=== PATIENT | female | born 1960 | race Caucasian/White ===

== ENCOUNTER → 2020-06-25 14:37 | Outpatient (CLI) | payer BC, SELFPAY ==
--- NOTE | ~2020-06-25 | MM_ITS ---
EXAMINATION: MM screening [facility] BI w mook HISTORY: Screening mammogram TECHNIQUE: Craniocaudal and mediolateral oblique 3-D tomosynthesis images were obtained and synthetic 2-D images were generated. CAD analysis was submitted and interpreted. COMPARISON: No prior mammogram is available for comparison at this institution. BREAST PARENCHYMAL COMPOSITION: FINDINGS: There is approximately 8 x 15 mm asymmetric density in the posterior aspect of the upper ou ter quadrant of the left breast. Otherwise there is no evidence of suspicious mass, calcification, or architectural distortion to sugg est malignancy in either breast. There has been no suspicious interval change. IMPRESSION: 1. Approximately 8 x 15 mm asymmetric density in posterior upper outer left breast; diagnostic left m ammogram and left breast ultrasound examination are recommended. 2. Recommend routine screening mammography in one year. BI-RADS Category 0: Incomplete: Needs additional imaging evaluation. Reviewed, dictated and finalized at location A. IMPRESSION: 1. Approximately 8 x 15 mm asymmetric density in posterior upper outer left cliff ast; diagnostic left mammogram and left breast ultrasound examination are recom mended. 2. Recommend routine screening mammography in one year. BI-RADS Category 0: Incomplete: Needs additional imaging evaluation.
== END ==
PROVIDERS: Visit Provider Obstetrics & Gynecology
DX: Z12.31 Encounter for screening mammogram for malignant neoplasm of breast (principal); R92.8 Other abnormal and inconclusive findings on diagnostic imaging of breast
CPT/HCPCS: 77063; 77067

== ENCOUNTER → 2020-07-17 14:23 | Outpatient (CLI) | payer BC, SELFPAY ==
--- NOTE | ~2020-07-17 | MMUS_ITS ---
EXAMINATION: MM diagnostic mammo unilat LT, US breast LT limited HISTORY: 8 x 15 mm asymmetric density reported in the posterior upper outer left breast on 06/25/2020 bilateral diagnostic digital mammogram examination TECHNIQUE: Additional 3-D tomosynthesis images of the left breast were performed and synthetic 2-D im ages were generated. CAD analysis was submitted and interpreted. High resolution upper outer quadrant left breast ultrasound was performed. COMPARISON: 06/25/2020 bilateral digital screening mammogram FINDINGS: MAMMOGRAPHIC FINDINGS: No suspicious mass or architectural distortion is reproduced on these supplemental views. ULTRASOUND: Matching the opacity noted on the screening mammogram of 06/25/2020 is a parallel circumscribed 3.5 x 18 mm x 21 mm sonolucency consistent with simple cyst. IMPRESSION: 1. Benign cyst at 2:00 6 cm from nipple 2. No mammographic evidence of malignancy. BI-RADS Category 2: Benign finding(s). Regulation: Routine mammographic screening Reviewed, dictated and finalized at location A. IMPRESSION: 1. Benign cyst at 2:00 6 cm from nipple 2. No mammographic evidence of malignancy. BI-RADS Category 2: Benign finding(s). Regulation: Routine mammographic screening
== END ==
PROVIDERS: Visit Provider Obstetrics & Gynecology
DX: N60.02 Solitary cyst of left breast (principal)
CPT/HCPCS: 76642; 77065

== ENCOUNTER → 2021-07-22 09:47 | Outpatient (CLI) | payer BC, SELFPAY ==
--- NOTE | ~2021-07-22 | MM_ITS ---
EXAMINATION: MM screening [facility] BI w mook HISTORY: Screening mammogram TECHNIQUE: Craniocaudal and mediolateral oblique 3-D tomosynthesis images were obtained and synthetic 2-D images were generated. CAD analysis was submitted and interpreted. COMPARISON: 07/17/2020, 06/25/2020, 06/17/2019 BREAST PARENCHYMAL COMPOSITION: The breasts are heterogeneously dense, which may obscure small masses . FINDINGS: There is no evidence of suspicious mass, calcification, or architectural distortion to sugg est malignancy in either breast. There has been no suspicious interval change. IMPRESSION: 1. No mammographic evidence of malignancy. 2. Recommend routine screening mammography in one year. BI-RADS Category 1: Negative Reviewed, dictated and finalized at location A.
== END ==
PROVIDERS: PCP Internal Medicine; Visit Provider Obstetrics & Gynecology
DX: Z12.31 Encounter for screening mammogram for malignant neoplasm of breast (principal)
CPT/HCPCS: 77063; 77067

== ENCOUNTER 2021-11-21 23:04 | Emergency (ER) | payer BC, SELFPAY ==
[2021-11-21 23:11] VITALS: BP 140/81; PULSE 71; RESP 16; TEMP 36.1; O2SAT 96
[2021-11-22] MEDS: LIDO 1%/EPINEPHRINE 1:100,000 50 ML VIAL 10 ML INFILTRATE (00:47)
[2021-11-22 00:49] VITALS: BP 139/85; PULSE 81; RESP 22; TEMP 36.6; O2SAT 100
--- NOTE | 2021-11-22 01:07 | ED.LOWEXIN ---
HPI - Extremity Injury (Lower) General Chief Complaint: Extremity Injury, Lower Stated Complaint: left knee injury Time Seen by Provider: 11/22/21 00:26 History of Present Illness HPI Narrative: Patient is a 61-year-old female who presents ER with left knee pain. She was walking garage when she tripped and fell driving her knee into the ground. She suffered laceration to the knee. No range of motion deficit. Tetanus up-to-date. No numbness or tingling. She did not strike her head or lose consciousness. Related Data Allergies Allergy/AdvReac Type Severity Reaction Status Date / Time Sulfa (Sulfonamide AdvReac Swelling Verified 11/21/21 23:15 Antibiotics) Review of Systems Musculoskeletal: Musculoskeletal: Denies arthralgias, Denies joint swelling and Denies muscle cramps Integumentary/Breasts: Skin/Breast: Denies rash and Denies skin ulcer Comments: knee laceration Neurologic: Denies syncope, Denies focal weakness and Denies numbness PMFSH Past Medical History Medical History (Updated 11/22/21 @ 01:28 by Johnathan Winter MD) Healthy female adult Surgical History Surgical History (Updated 11/22/21 @ 01:09 by Johnathan Winter MD) No history of previous surgery Social History Social History (Updated 11/22/21 @ 01:09 by Johnathan Winter MD) Smoking status: Never smoker Exam Narrative: GENERAL: Well-appearing, well-nourished, and in no acute distress. HEAD: Normocephalic, atraumatic. HEART: Regular rate and rhythm. No murmur heard. Normal peripheral pulses. EXTREMITIES: Normal range of motion. No edema. SKIN: Warm, dry, no rash. 2.5 cm L-shaped laceration to the left knee. Does not subcutaneous tissue. Bleeding controlled. No foreign body. NEURO: No focal deficits. Alert and oriented x3. PSYCH: Normal mood and affect. Course Vital Signs Vital signs: Vital Signs Temperature 97.0 F L 11/21/21 23:11 Pulse Rate 71 11/21/21 23:11 Respiratory Rate 16 11/21/21 23:11 Blood Pressure 140/81 11/21/21 23:11 Pulse Oximetry 96 11/21/21 23:11 Temperature 98 F 11/22/21 00:49 Pulse Rate 81 11/22/21 00:49 Respiratory Rate 22 H 11/22/21 00:49 Blood Pressure 139/85 11/22/21 00:49 Pulse Oximetry 100 11/22/21 00:49 Procedures Laceration Laceration 1: Date: 11/22/21 Time: 01:05 Site: lower extremity Side (If applicable): left Size (cm): 2.5 Description: linear Depth: simple, single layer Local Anesthetic: lidocaine 1% and with epi Amount of anesthesia used (mL): 3 Pre-repair: wound explored and irrigated ====== Skin Level ====== Skin layer closed with: nylon Size (cm): 3-0 Number of sutures: 3 Technique: simple, interrupted (2) and horizontal mattress (1) ====== Subcutaneous Layer ====== ====== Muscle Layer ====== ====== Tendon Layer ====== Discharge Plan Discharge Clinical Impression: Laceration of knee Patient Disposition: Home, Self-Care Condition: Stable Instructions: Laceration (ED) Additional Instructions: Return the ER if you have fever of 100.4 ?F, you have pus draining from your knee, you suffer new injury, you have additional concerns. You may remove the sutures in 14 days. Follow-up/Referrals: Marcos,MD Randy [Primary Care Provider] - 2 Weeks
== END 2021-11-22 02:06 | disposition home or self-care (01) ==
PROVIDERS: Emergency Provider Emergency Medicine; PCP Internal Medicine
DX: S81.012A Laceration without foreign body, left knee, initial encounter (principal); W01.0XXA Fall on same level from slipping, tripping and stumbling without subsequent striking against object, initial encounter
CPT/HCPCS: 12001; 99282

== ENCOUNTER → 2022-10-08 08:16 | Outpatient (CLI) | payer BC, SELFPAY ==
--- NOTE | ~2022-10-08 | MM_ITS ---
EXAMINATION: MM screening [facility]i BI w mook HISTORY: Screening TECHNIQUE: Craniocaudal and mediolateral oblique 3-D tomosynthesis images were obtained and synthetic 2-D images were generated. CAD analysis was submitted and interpreted. COMPARISON: Comparison to multiple prior studies sequentially, with oldest reviewed study dated 06/14. BREAST PARENCHYMAL COMPOSITION: The breasts are extremely dense, which lowers the sensitivity of mamm ography FINDINGS: There is a new focal asymmetry centrally in the left breast on CC view. The right breast is stable without evidence for malignancy. IMPRESSION: 1. New focal left breast asymmetry located centrally on CC view, posterior third. 2. Additional mammographic views and possible breast ultrasound are recommended. BI-RADS Category 0: Incomplete: Needs additional imaging evaluation. Reviewed, dictated and finalized at location A. ISSIONS SPECIALIST IMPRESSION: 1. New focal left breast asymmetry located centrally on CC view, posterior thir d. 2. Additional mammographic views and possible breast ultrasound are recommended . BI-RADS Category 0: Incomplete: Needs additional imaging evaluation.
== END ==
PROVIDERS: PCP Internal Medicine; Visit Provider Advanced Practice Midwife
DX: Z12.31 Encounter for screening mammogram for malignant neoplasm of breast (principal); R92.8 Other abnormal and inconclusive findings on diagnostic imaging of breast
CPT/HCPCS: 77063; 77067

== ENCOUNTER → 2022-11-02 07:54 | Outpatient (CLI) | payer BC, SELFPAY ==
--- NOTE | ~2022-11-02 | MM_ITS ---
EXAMINATION: MM diagnostic nicki LT w mook HISTORY: Possible left breast mass on screening mammogram TECHNIQUE: Additional 3-D tomosynthesis images of the left breast were performed and synthetic 2-D im ages were generated. CAD analysis was submitted and interpreted. COMPARISON: 10/08/2022, 07/22/2021, 07/17/2020, 06/25/2020 FINDINGS: There is a return to baseline fibroglandular appearance with spot compression of the left b reast in the area questioned on screening mammogram. IMPRESSION: 1. No mammographic evidence of malignancy. 2. Recommend routine screening mammography in one year. BI-RADS Category 1: Negative Reviewed, dictated and finalized at location A. 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
== END ==
PROVIDERS: PCP Internal Medicine; Visit Provider Obstetrics & Gynecology Gynecology
DX: R92.8 Other abnormal and inconclusive findings on diagnostic imaging of breast (principal)
CPT/HCPCS: 77061; 77065; G0279

== ENCOUNTER 2023-05-08 09:00 | Outpatient (NON) | payer BC, SELFPAY | END 2023-05-08 09:01 | disposition home or self-care (01) | LOC: ANHLAB 05-10 15:33 | PROVIDERS: PCP Internal Medicine; Visit Provider Nurse Practitioner | DX: C44.90 Unspecified malignant neoplasm of skin, unspecified (principal) | CPT/HCPCS: 88305 ==

== ENCOUNTER 2023-07-11 04:13 | Day surgery (SDC) | payer BC, SELFPAY ==
[2023-07-03 13:22] VITALS: BMI 25.2
[2023-07-11 07:20] VITALS: BP 127/84; PULSE 70; RESP 16; TEMP 36.2; O2SAT 97; BMI 25.2
[2023-07-11] MEDS: LACTATED RINGERS 1,000 ML 150 ML IV CONT (07:29)
--- NOTE | 2023-07-11 08:17 | P.PNAN_ITS ---
Anes - Initial Pre Proc Eval Procedure: Operation Date: 07/11/23 08:45 Proposed Procedures p Screening Colonoscopy - Stuart Guan MD Date/Time: 07/11/23 08:17 Surgeon: Stuart Guan MD Pre Op Diagnosis: neoplasm screening Patient Data Age: 63 Gender: F Height: 1.7 m Weight: 73 kg Last Vital Signs Temp 36.2 C L 07/11/23 07:20 Pulse 70 07/11/23 07:20 Resp 16 07/11/23 07:20 BP 127/84 07/11/23 07:20 Pulse Ox 97 07/11/23 07:20 O2 Del Method Room Air 07/11/23 07:20 Allergies Allergy/AdvReac Type Severity Reaction Status Date / Time Sulfa (Sulfonamide AdvReac Swelling Verified 07/11/23 07:19 Antibiotics) Home Medications Medication Instructions Recorded Confirmed Type bupropion HCl 300 mg 24 hr tablet, 300 mg PO QAM 07/03/23 07/11/23 History extended release diphenhydramine HCl 25 mg capsule 25 mg PO HS PRN Insomnia 07/03/23 07/11/23 History (Benadryl) sertraline 100 mg tablet 100 mg PO DAILY 07/03/23 07/11/23 History Patient hx anesthesia problems: none Family hx anesthesia problems: none Results Review: All pre-operative results and documents have been reviewed as part of the pre- operative evaluation. COUNTS INCLUDE 234 BEDS AT THE [facility] Past Medical History Medical History Healthy female adult Surgical History Surgical History No history of previous surgery Social History Social History Smoking status: Never smoker Alcohol intake: current Drinks per week: 7 Alcohol use details: 1 glass wine/day Living arrangements: with family Spiritual care concerns: No Anes - Eval Final PreProcedure Day of Procedure 07/11/23 08:17 Patient weight: normal Heart: regular rate and rhythm Lungs: clear to auscultation Airway: Mallampati scale class II Neurological: alert and oriented Last oral intake: >/= 8 hours ASA classification: II Emergent: no Anesthetic plan: proceed Anesthesia type and monitoring: general GIVS and standard monitoring Results Review: All pre-operative results and documents have been reviewed as part of the pre- operative evaluation. Informed Consent: The patient's anesthetic plan and its attendant risks and benefits were discussed with the patient/family/POA. Questions were solicited and answers provided to the satisfaction of the patient/family/POA.
--- NOTE | 2023-07-11 08:23 | PM.HPGS ---
History of Present Illness History of Present Illness Consent: Risks, benefits, and alternatives have been discussed and questions answered. Patient agrees to proceed with procedure. Chief complaint: neoplasm screening Narrative: Liz Velásquez is a 63 year old female here for first screening colonoscopy Review of Systems Constitutional: Constitutional: Denies headache(s) and Denies weakness Eyes: Eyes: Denies blurry vision ENT: Reports Normal hearing present, Denies headache(s) and Denies neck pain Cardiovascular: Cardiovascular: Denies chest pain and Denies dyspnea Respiratory: Respiratory: Denies dyspnea Gastrointestinal: Gastrointestinal: Reports no additional gastrointestinal complaints Genitourinary: Genitourinary: Denies dysuria Musculoskeletal: Musculoskeletal: Denies neck pain Integumentary/Breasts: Skin/Breast: Denies dry skin Neurologic: Reports Normal hearing present, Denies headache(s) and Denies weakness Psychiatric: Psychiatric: Denies anxiety Endocrine: Endocrine: Denies change in body appearance Hematologic/Lymphatic: Hematologic/Lymphatic: Denies easy bleeding Allergic/Immunologic: Allergic/Immunologic: Denies urticaria [facility] Past Medical History Medical History (Updated 07/11/23 @ 08:23 by Stuart Guan MD) Colon cancer screening Healthy female adult Surgical History Surgical History No history of previous surgery Social History Social History Smoking status: Never smoker Alcohol intake: current Drinks per week: 7 Alcohol use details: 1 glass wine/day Living arrangements: with family Spiritual care concerns: No Meds Home Medications and Allergies Home Medications Medication Instructions Recorded Confirmed Type bupropion HCl 300 mg 24 hr tablet, 300 mg PO QAM 07/03/23 07/11/23 History extended release diphenhydramine HCl 25 mg capsule 25 mg PO HS PRN Insomnia 07/03/23 07/11/23 History (Benadryl) sertraline 100 mg tablet 100 mg PO DAILY 07/03/23 07/11/23 History Allergies Allergy/AdvReac Type Severity Reaction Status Date / Time Sulfa (Sulfonamide AdvReac Swelling Verified 07/11/23 07:19 Antibiotics) Vital Signs Vital Signs - 24 hr 07/11/23 07:20 Temperature 97.1 F L Pulse Rate 70 Respiratory Rate 16 Blood Pressure 127/84 Pulse Oximetry 97 Oxygen Delivery Room Air Exam Const: General: comfortable and no acute distress HENMT: Face/Nose/Sinus: Normal nares present Eyes: General: appearance normal, both eyes and all related structures Neck: Neck: no JVD Resp: Auscultation: clear to auscultation bilaterally Cardio: Rate: regular rate Rhythm: regular rhythm GI: Inspection: non-distended GI Palp: Yes Soft to palpation Skin: General skin exam: normal color Neuro: General: gait normal Speech: normal speech Extrem: General: normal to inspection Psych: Mental Status: mental status grossly normal Assessment and Plan Assessment and plan (1) Colon cancer screening: Code(s): Z12.11 - Encounter for screening for malignant neoplasm of colon Status: Acute Assessment and Plan: colonoscopy
[2023-07-11 08:46] VITALS: BP 106/69; PULSE 65; RESP 18; O2SAT 96
[2023-07-11 08:56] VITALS: BP 110/77; PULSE 56; RESP 18; O2SAT 99
[2023-07-11 09:06] VITALS: BP 115/79; PULSE 64; RESP 18; O2SAT 97
== END 2023-07-11 09:11 | disposition home or self-care (01) ==
PROVIDERS: PCP Internal Medicine; Visit Provider Internal Medicine Gastroenterology
PROC: 0DJD8ZZ Inspection of Lower Intestinal Tract, Via Natural or Artificial Opening Endoscopic (ICD-10-PCS; CPT 45378; principal; 2023-07-11 08:45)
DX: Z12.11 Encounter for screening for malignant neoplasm of colon (principal); D12.0 Benign neoplasm of cecum; K64.8 Other hemorrhoids
CPT/HCPCS: 45385; 88305; J2704; J7120

== ENCOUNTER → 2023-10-10 13:08 | Outpatient (CLI) | payer BC, SELFPAY ==
--- NOTE | ~2023-10-10 | MM_ITS ---
EXAMINATION: MM screening [facility] BI w mook HISTORY: Screening mammogram TECHNIQUE: Craniocaudal and mediolateral oblique 3-D tomosynthesis images were obtained and synthetic 2-D images were generated. CAD analysis was submitted and interpreted. COMPARISON: 11/02/2022, 10/08/2022, 07/22/2021, 07/17/2021, 06/25/2020 BREAST PARENCHYMAL COMPOSITION: The breasts are heterogeneously dense, which may obscure small masses . FINDINGS: No suspicious mass, calcification, or architectural distortion are identified in either cliff ast to suggest malignancy. There has been no suspicious interval change. IMPRESSION: 1. No mammographic evidence of malignancy. 2. Recommend routine screening mammography in one year. BI-RADS Category 1: Negative Reviewed, dictated and finalized at location A. 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
== END ==
PROVIDERS: PCP Internal Medicine; Visit Provider Advanced Practice Midwife
DX: Z12.31 Encounter for screening mammogram for malignant neoplasm of breast (principal)
CPT/HCPCS: 77063; 77067

== ENCOUNTER 2024-12-25 14:02 | Outpatient (CLI) | payer BC, SELFPAY ==
--- NOTE | ~2024-12-25 | MM_ITS ---
EXAMINATION: MM screening [facility] BI w mook HISTORY: Screening TECHNIQUE: Craniocaudal and mediolateral oblique 3-D tomosynthesis images were obtained and synthetic 2-D images were generated. CAD analysis was submitted and interpreted. COMPARISON: Comparison to multiple prior studies sequentially, with oldest reviewed study dated 06/25. BREAST PARENCHYMAL COMPOSITION: Dense: The breasts are heterogeneously dense, which may obscure small masses FINDINGS: There is no evidence of suspicious mass, calcification, or architectural distortion to sugg est malignancy in either breast. There has been no suspicious interval change. IMPRESSION: 1. No mammographic evidence of malignancy. 2. Recommend routine screening mammography in one year. BI-RADS Category 1: Negative Reviewed, dictated and finalized at location A. S TRAINEE
== END 2024-12-25 14:03 | disposition home or self-care (01) ==
PROVIDERS: PCP Internal Medicine; Visit Provider Obstetrics & Gynecology Gynecology
DX: Z12.31 Encounter for screening mammogram for malignant neoplasm of breast (principal)
CPT/HCPCS: 77063; 77067

== ENCOUNTER 2025-08-02 21:11 | Emergency (ER) | payer BC, SELFPAY ==
--- NOTE | ~2025-08-02 | CT_ITS ---
EXAMINATION: CT facial bones wo con COMPARISON: None HISTORY: trauma TECHNIQUE: Axial images were obtained without IV contrast. Sagittal, coronal reconstruction images were obtained from the axial views. CT scan performed using dose optimization techniques including the following automated exposure control; adjustment of mA and/or kV; use of iterative reconstruction technique. Automatic exposure control was used to reduce radiation dose. Permanent radiation dose record is archived to PACS. FINDINGS: Nasal bones are intact. Zygomatic arches are intact. Temporomandibular joints are intact. There is a comminuted displaced fracture of the right posterior inferior orbit, no entrapment. Posttraumatic changes noted involving the maxillary sinuses on the right side. Underlying sinusitis and probable polyp formation. There is a nondisplaced fracture of the right lateral posterior maxillary sinus wall. Nondisplaced fracture of the posterior right lateral orbital rim. There is no retrobulbar hemorrhage. Right preseptal soft tissue swelling. The visualized brain parenchyma appears unremarkable. IMPRESSION: Fractures detailed above Reviewed, dictated and finalized at location A. IMPRESSION: Fractures detailed above
[2025-08-02 21:19] VITALS: BP 142/87; PULSE 63; RESP 18; TEMP 36.7; O2SAT 99
--- OUTSIDE RECORDS SUMMARY | 2025-08-03 00:54 | XMS_ITS | Clinical Summary ---
Author Organization [facility] Address [address] [place] [address] Care Team Providers Care Application Analyst Name Role Phone Randy Rodríguez MD Primary Care Provider [phone] Randy Rodríguez MD Unavailable [phone] Source Comments [facility],non-owned Affiliates and Associated Physician Practices is amultiple site organization consisting of ambulatory clinics and hospital sitesin [place], [place], [place] and [place]. This disclosure is being madepursuant to the Care Everywhere program and may not contain all information available regarding this patient. Last updated 18.[facility] [employer] Allergies Active Allergy Reactions Criticality Noted Date Comments Sulfa Drugs 07/28/2017 Medications * Be aware that medications may not be up to date on this document. Alwaysverify current medications with the patient. buPROPion XL 24hr (WELLBUTRIN-XL) 300 MG tablet Take 300 mg by mouth every morning Active sertraline (ZOLOFT) 100 MG tablet Take 100 mg by mouth once daily Active estradiol (YUVAFEM) 10 MCG vaginal tablet Insert 10 mcg into the vagina Active Immunizations Immunization Administration Dates Next Due INFLUENZA VACCINE, QUADR. (F LUZONE; FLULAVAL; FLUARIX; AFLURIA QUADRIVALENT; 6MO+), 0.5 ML (IIV4) 09/07/2020,09/18/2019,08/25/2017 Social History Tobacco Use Types Packs/Day Years Used Date Smoking Tobacco: Never Smokeless Tobacco: Never Comments Unknown Sex and Gender Information Value Date Recorded Sex Assigned at Not on file Legal Sex Female 8:16 AM CDT Gender Identity Not on file Sexual Orientation Not on file Last Filed Vital Signs Vital Sign Reading Time Taken Comments Blood Pressure 122/80 07/28/2017 12:25 PM CDT Pulse 69 07/28/2017 12:25 PM CDT Temperature 36.8 C (98.2 F) 07/28/2017 12:25 PM CDT Respiratory Rate 16 07/28/2017 12:25 PM CDT Oxygen Saturation 98% 07/28/2017 12:25 PM CDT Inhaled Oxygen Concentration - - Weight 65.8 kg (145 lb) 07/28/2017 12:25 PM CDT Height 170.2 cm (5' 7) 07/28/2017 12:25 PM CDT Body Mass Index 22.71 07/28/2017 12:25 PM CDT Plan of Treatment Health Maintenance Due Date Last Done Comments COLOGUARD (AGES 45-75) - COL ON CA SCREENING 1961 COLON MONITORING 1961 COLONOSCOPY - COLON CA SCREENING 1961 CT COLONOGRAPHY - COLON CA SCREENING 1961 Colorectal Cancer Screening 1961 FIT - COLON CA SCREENING 1961 FLEX SIG - COLON CA SCREENING 1961 LIPID TESTING 1961 MAMMOGRAM 1961 HIV SCREENING 02/28/1976 HEPATITIS C SCREENING 02/23/1979 DTAP/TDAP/TD VACCINES (1 - Tdap) 02/28/1980 PAP SMEAR 1982 PNEUMOCOCCAL VACCINE 50+ (1 of 1 - PCV) 2011 ZOSTER VACCINE (1 of 2) 2011 DEPRESSION SCREENING 11/27/2024 COVID-19 VACCINE (3 - 2024-2 6 season) 2025 03/02/2021, 02/08/2021 INFLUENZA VACCINE (#1) 2025 , 09/18/2019, 08/25/2017 Respiratory Syncytial Virus (RSV) Vaccine Pt: or over 60 yrs (1 - 1-dose 75+ series) 02/28/2036 HEPATITIS B VACCINE Aged Out No longe r eligible based on patient's age to complete this topic HIB VACCINE Aged Out No longer eligi ble based on patient's age to complete this topic HPV VACCINE Aged Out No longer eligi ble based on patient's age to complete this topic MENINGOCOCCAL (Group B) VACCINE SHARED DECISION-MAKING Aged Out No longer eligible based on patient's age to complete this topic MENINGOCOCCAL GROUPS A/C/Y/W VACCINE Aged Out No longer eligible b ased on patient's age to complete this topic Insurance ANTHEM ANTHEM BC/BLUE TRIPOLI CROSS BLUE [facility] BS/BLUE BLUE [place]OSS BLUE [facility] [place] [employer] CROSS [employer] [facility] [place] Advance Directives Documents on File Type Date Recorded 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
--- OUTSIDE RECORDS SUMMARY | 2025-08-03 00:54 | XMS_ITS | Clinical Summary ---
Author Organization [facility] Address [address] [place] [address] Care Team Providers Care Wood Model Maker Name Role Phone Randy Rodríguez MD Primary Care Provider + Heather Kaminski MD Unavailable [phone] Daniel Cook MD Unavailable [phone] Soheila Dumont MD Unavailable [phone] Allergies Active Allergy Reactions Criticality Noted Date Comments Sulfa (Sulfonamide Antibiotics) Swelling Medium 04/07/2016 To face from eye drops Medications diclofenac sodium (VOLTAREN) 1 % gel Apply 2-4 g topically 3 (three) times a day as needed Active sertraline (ZOLOFT) 100 mg tabletIndications :Anaclitic depression,Anxiet y TAKE 1 TABLET(100 MG) BY MOUTH DAILY 90 tablet 3 4 Active losartan (COZAAR) 25 mg tabletIndications :Primary hypertension TAKE 1 TABLET(25 MG) BY MOUTH DAILY 90 tablet 3 4 Active cyanocobalamin, vitamin B-12, 2,500 mcg lozengeIndication s:Prevention of Vitamin B12 Deficiency [address] 2,500 mcg under the tongue daily Active famotidine (PEPCID) 20 mg tabletIndications :Gastroesophageal reflux disease without esophagitis TAKE 1 TABLET(20 MG) BY MOUTH TWICE DAILY 180 tablet 3 4 Active ALPRAZolam (XANAX) 0.25 mg tabletIndications :Depression with anxiety TAKE 1 TABLET(0.25 MG) BY MOUTH DAILY NEEDED FOR ANXIETY 30 tablet 3 5 Active buPROPion XL (WELLBUTRIN XL) 300 mg 24 hr tabletIndications :Anaclitic depression,Anxiet y TAKE 1 TABLET BY MOUTH EVERY MORNING 90 tablet 3 5 Active Active Problems Problem Noted Date Diagnosed Date Caregiver stress 08/10/2023 Nodule of finger of left hand 08/05/2022 Depression with anxiety 07/14/2021 Right low back pain 06/18/2020 Gastroesophageal reflux disease without esophagi tis 06/18/2020 Seasonal allergies 06/18/2020 Vitamin D deficiency 06/17/2020 Shingles 06/14/2018 History of nonmelanoma skin cancer 07/20/2017 Hearing loss 12/08/2016 Dyslipidemia 06/07/2016 Menopausal disorder 06/07/2016 Osteopenia 04/15/2016 Pain in female genitalia on intercourse 04/07/20 16 Hypertension 04/07/2016 Insomnia 04/07/2016 Osteoarthritis 04/07/2016 Arthralgia of hip 04/07/2016 Cobalamin deficiency 04/07/2016 Immunizations Immunization Administration Dates Next Due Influenza, Quadrivalent, Rec ombinant, Egg Free, Preservative Free, Intramuscular 08/05/2022 Influenza, Quadrivalent, Spl it, Preservative Free, Intramuscular 09/07/2020,09/18/2019,08/25/2017 Influenza, Trivalent, Recomb inant, Egg Free, Preservative Free, Antibiotic Free, IM (FLUBLOK) 08/12/2024 PPD TEST 11/27/2010 [employer] SARS-CoV-2 Monovalent Vaccination (12+ Yrs) PURPLE 08/30/2021,02/25/2021,01/25/2021 TD Preservative Free 11/27/2010 Tdap 07/15/2021 ZOSTER Recombinant 11/13/2020, 0,09/14/2020,09/14 Surgical History Surgery Date Site/Laterality Comments [place] COLPOSCOPY CERVIX UPPER/ADJACENT VAGINA Colposcopy - (Added by TW Conv) 1993 Medical History Medical History Date Comments Ganglion Ganglion cyst - Left hand. Removed 1998 (Added by TW Conv) Personal history of other sp ecified conditions History of abnormal cervical Papanicolaou smear - (Added by TW Conv) Personal history of neoplasm of uncertain behavior History of neoplasm of uncer tain behavior of skin - (Added by TW Conv) Decreased white blood cell count Leukopenia - (Added by TW Conv) Pain in knee Knee pain - X-ra ys 04/11 neg (Added by TW Conv) Disorder of breast Breast lesion - Has had u/s in past c/w cyst (Added by TW Conv) Melanocytic nevus Multiple benig n nevi - (Added by TW Conv) Uncomplicated alcohol abuse Alco hol abuse, episodic - (Added by TW Conv) Personal history of other ma lignant neoplasm of skin 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 (Added by TW Conv) Osteoporosis Hypertension Anxiety Family History Medical History Relation Name Comments Diabetes Brother Randy Banks Blood Clot Father Candido banks Cancer Father Candido banks Dyslipidemia Father Candido banks Dyslipidemi a - (Added by TW Conv) Hyperlipidemia Father Candido banks Hypertension Father Candido banks Family hist ory of hypertension - (Added by TW Conv) Heart attack Maternal Grandfather Saúl hutchins Arthritis Mother Karolina banks Blood Clot Mother Karolina banks Dyslipidemia Mother Karolina banks Dyslipidemia - (Added by TW Conv) Hyperlipidemia Mother Karolina banks Hypertension Mother Karolina banks Family histo ry of hypertension - (Added by TW Conv) Diabetes Other 1 Family history of diabetes mellitus - (Added by TW Conv) Migraines Other 2 Family history of migraine headaches - (Added by TW Conv) Thyroid disease Other 3 Family histo ry of thyroid disease - (Added by TW Conv) Heart attack Paternal Grandfather Maxwell Banks Arthritis Sister Gloria augustine Brain cancer Sister Gloria augustine Brain tumor - ( Added by TW Conv) Breast cancer Neg Hx Colon cancer Neg Hx Relation Name Status Comments Brother Randy Banks Father Candido banks Maternal Grandfather Saúl hutchins Mother Karolina banks Other 1 Other 2 Other 3 Paternal Grandfather Maxwell Banks Sister Gloria augustine Social History Tobacco Use Types Packs/Day Years Used Date Smoking Tobacco: Never Smokeless Tobacco: Never Tobacco Cessation:Counseling Given: No Alcohol Use Standard Drinks/Week Comments Yes 0 (1 standard drink = 0.6 oz pur e alcohol) 1-2 daily PHQ-2 Answer Date Recorded PHQ-2 Total Score (If total score is 3 or more points, staff should administer the PHQ-9) 0 08/12/2024 Personal Safety Answer Date Recorded Getting School Help Needed Not on file 12/01 Comments No Sex and Gender Information Value Date Recorded Sex Assigned at Not on file Legal Sex 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 Gender Identity Not on file Sexual Orientation Not on file Obstetrics History Last Filed Vital Signs Vital Sign Reading Time Taken Comments Blood Pressure 120/70 08/12/2024 1:05 PM CDT Pulse 75 08/12/2024 1:05 PM CDT Temperature 36.7 C (98 F) 08/10/2023 2:05 PM CDT Respiratory Rate 20 08/12/2024 1:05 PM CDT Oxygen Saturation 96% 08/12/2024 1:05 PM CDT Inhaled Oxygen Concentration - - Weight 74.8 kg (165 lb) 08/12/2024 1:05 PM CDT Height 170.2 cm (5' 7) 08/12/2024 1:05 PM CDT Body Mass Index 25.84 08/12/2024 1:05 PM CDT Plan of Treatment Health Maintenance Due Date Last Done Comments Breast Cancer Screening-Mammogram 10/11/2024 10/11/2023, 10/27/2022, 05/27/2020, Additional history exists Cervical Cancer Screening 05/27/20252023, 06/27/2023, 05/27/2020, Additional history exists Covid-19 Vaccine ( season) 2025 08/30/2021, 02/25/2021, 01/25/2021 Influenza Vaccine (#1) 2025 , 08/12/2024, 08/05/2022, Additional history exists Depression Screening 08/12/2025 08/12/2024, 08/10/2023, 08/05/2022, Additional history exists Regular Well Visit/Exam 18-64 08/12/2025 08/12/2024, 08/12/2024, 08/10/2023, Additional history exists Colon Cancer Screening-Colonoscopy 06/27/2028 06/27/2023, 11/27/2013 DTaP/Tdap/Td Vaccine (2 - Td or Tdap) 07/15/2031 07/15/2021, 11/27/2010 Colon Cancer Screening-CT Colonography Discontinued 11/27/2013 Colon Cancer Screening-DNA Stool Discontinued 11/27/2013 Colon Cancer Screening-FIT Discontinued 11/27/2013 Colon Cancer Screening-Sigmoidoscopy Discontinued 11/27/2013 Hepatitis C Screening Completed 04/28/2017 Zoster Vaccine Completed 11/13/2020, 10/27, 09/14/2020, Additional history exists Hepatitis B Screening Completed 08/12/2024 Pneumococcal vaccine <65 Aged Out No longer eligible based on patient's age to complete this topic Procedures Procedure Name Priority Date/Time Associated Diagnosis Comments MAMMOGRAPHY Routine 05/27/2020 PAP SMEAR WITH HPV Routine 05/27/2020 HEPATITIS C ANTIBODY Routine Gen Lab 04/28/2017 9:59 AM CDT COLONOSCOPY Routine 11/27/2013 from Last 3 Months or Most Recently Relevant to Health Maintenance Results * PAP SMEAR WITH HPV (05/27/2020) Pap smear Normal Historical Provider HEALTH MAINTENANCE Final Result * MAMMOGRAPHY (05/27/2020) Mammogram Normal Historical Provider HEALTH MAINTENANCE Final Result * Hepatitis C antibody (04/28/2017 9:59 AM CDT) Hep C Ab Nonreactive Nonreactive [facility] Comment: Interpretive Data Positive results should be confirmed by a molecular method. If positive, a second separately collected sample should be submitted for Hepatitis C Virus (HCV) RNA Detection and Quantitation by Real-Time Reverse Business Unit Controller-PCR (RT-PCR). Current interpretive data was last revised on 2016. Blood specimen (specimen) 04/28/2017 9:59 AM CDT 04/28/2017 11:38 AM CDT Randy Rodríguez MD LAB MICROBIOLOGY - GENER AL ORDERABLES Edited Result - Final [facility] Department [place] [address] * COLONOSCOPY (11/27/2013) Colonoscopy Normal us Historical Provider MD HEALTH MAINTENANCE Final Result from Last 3 Months or Most Recently Relevant to Health Maintenance Insurance [employer] OOS ANTHEM ACCESS [employer] [place]OS [place] Care Teams Wood Model Maker Relationship Specialty Start Date End Date Randy Rodríguez MD [address] [place] [address] [address] [place] [address] PCP - General 04/28/17 Heather Kaminski MD [address] [place] [address] [address]ush [address] [place] [address] Referring Physician Dermatology 05/16/18 Daniel Cook MD [address] [place] [address] [address]ush [address] [place] [address] Surgeon Orthopedic Surgery 06/16/19 Soheila Dumont MD [address] [place] [address] Medical Oncologist/Plating Tank Operator Apprentice Hematology 07/14/21
--- NOTE | 2025-08-03 01:14 | ED.GENADULT ---
HPI - General Adult General Chief complaint: Wound/Laceration <Nyasia Wills MD - Last Filed: 08/03/25 02:45> Stated complaint: eye injury <Nyasia Wills MD - Last Filed: 08/03/25 02:45> Time Seen by Provider: 08/03/25 00:32 <Nyasia Wills MD - Last Filed: 08/03/25 02:45> History of Present Illness HPI narrative: Patient is a 65 year old female who presents to the ED this evening s/p right eye trauma. Patient states that she was at a baseball game and got hit in the right eye by a baseball. Patient does have swelling to her right orbital region along her right lower orbit and right maxillary region. Denies any vision changes or eye pressure. Patient's only complaining of right cheek pain. Denies any blood thinner use. Denies any loss of consciousness. Noticed symptoms or <Nyasia Wills MD - Last Filed: 08/03/25 02:45> Related Data Home medications: Home Medications ?Medication ?Instructions ?Recorded ?Confirmed ?Last Taken ?Type bupropion HCl 300 mg 24 hr tablet, 300 mg PO QAM 07/03/23 07/11/23 Unknown History extended release diphenhydramine HCl 25 mg capsule 25 mg PO HS PRN Insomnia 07/03/23 07/11/23 Unknown History (Benadryl) sertraline 100 mg tablet 100 mg PO DAILY 07/03/23 07/11/23 Unknown History <Nyasia Wills MD - Last Filed: 08/03/25 02:45> Allergies/adverse reactions: Allergies Allergy/AdvReac Type Severity Reaction Status Date / Time Sulfa (Sulfonamide AdvReac Swelling Verified 07/11/23 07:19 Antibiotics) <Nyasia Wills MD - Last Filed: 08/03/25 02:45> Review of Systems Review of Systems: All systems are reviewed and are negative unless stated otherwise in the HPI. <Nyasia Wills MD - Last Filed: 08/03/25 02:45> PMFSH Past Medical History Medical History: Medical History Colon cancer screening Healthy female adult <Nyasia Wills MD - Last Filed: 08/03/25 02:45> Surgical History Surgical History: Surgical History No history of previous surgery <Nyasia Wills MD - Last Filed: 08/03/25 02:45> Social History Social History: Social History Smoking status: Never smoker Alcohol intake: current Drinks per week: 7 Alcohol use details: 1 glass wine/day Living arrangements: with family Spiritual care concerns: No <Nyasia Wills MD - Last Filed: 08/03/25 02:45> Exam Narrative: General: Alert, awake, afebrile, in no acute distress. HEENT: PERRL, no rhinorrhea, no post nasal drip, swelling mainly noted to the inferior aspect of the right eye and overlying the right maxillary sinus otherwise intact extraocular movement with no evidence of muscle entrapment. Superficial linear laceration inferior to the right orbital region overlying the patient's maxilla. Neck: Trachea midline, no JVD, no lymphadenopathy. Cardiovascular: Regular rate and rhythm, no murmurs, rubs or gallops, no peripheral edema. Respiratory: Clear to auscultation bilaterally, no tachypnea, no wheezing, no rhonchi, no rubs, no respiratory distress. Abdomen: Soft, nontender, nondistended, no rebound, no guarding, no peritoneal signs. Musculoskeletal: No joint swelling or deformity, normal muscle tone. Skin: No rashes or petechia, no signs of infection. Psychiatric: Alert and oriented, normal behavior and judgment for situation. Neurological: Alert and oriented to person, place, and time. Follows all commands. No focal deficits, speech is clear and fluent. <Nyasia Wills MD - Last Filed: 08/03/25 02:45> Course Vital Signs Vital signs: Vital Signs Temperature 98.1 F 08/02/25 21:19 Pulse Rate 63 08/02/25 21:19 Respiratory Rate 18 08/02/25 21:19 Blood Pressure 142/87 H 08/02/25 21:19 Pulse Oximetry 99 08/02/25 21:19 Oxygen Delivery Room Air 08/02/25 21:19 Temperature 98.1 F 08/02/25 21:19 Pulse Rate 63 08/02/25 21:19 Respiratory Rate 18 08/02/25 21:19 Blood Pressure 142/87 H 08/02/25 21:19 Pulse Oximetry 99 08/02/25 21:19 Oxygen Delivery Room Air 08/02/25 21:19 <Nyasia Wills MD - Last Filed: 08/03/25 02:45> Vital Signs Temperature 98.1 F 08/02/25 21:19 Pulse Rate 63 08/02/25 21:19 Respiratory Rate 18 08/02/25 21:19 Blood Pressure 142/87 H 08/02/25 21:19 Pulse Oximetry 99 08/02/25 21:19 Oxygen Delivery Room Air 08/02/25 21:19 Temperature 98.1 F 08/02/25 21:19 Pulse Rate 63 08/02/25 21:19 Respiratory Rate 18 08/02/25 21:19 Blood Pressure 142/87 H 08/02/25 21:19 Pulse Oximetry 99 08/02/25 21:19 Oxygen Delivery Room Air 08/02/25 21:19 <WESTON Lara Last Filed: 08/03/25 02:22> Procedures Laceration Laceration 1: Date: 08/03/25 <WESTON Lara Last Filed: 08/03/25 02:22> Time: 02:21 <WESTON Lara Last Filed: 08/03/25 02:22> Site: face <WESTON Lara Last Filed: 08/03/25 02:22> Side (If applicable): right <WESTON Lara Last Filed: 08/03/25 02:22> Size (cm): 2.5 <WESTON Lara Last Filed: 08/03/25 02:22> Description: linear <WESTON Lara Last Filed: 08/03/25 02:22> Depth: simple, single layer <WESTON Lara Last Filed: 08/03/25 02:22> Pre-repair: irrigated <Aline CondeWESTON - Last Filed: 08/03/25 02:22> ====== Skin Level ======: Skin layer closed with: dermabond <Aline Conde JULIAEyalChristian - Last Filed: 08/03/25 02:22> ====== Subcutaneous Layer ======: ====== Muscle Layer ======: ====== Tendon Layer ======: Medical Decision Making MDM Narrative Medical decision making narrative: The patient was evaluated by myself in the emergency department. History is obtained from patient who is an independent historian and physical exam was performed. External medical records were reviewed at this time. Visual acuity was performed and equal bilaterally. Imaging studies obtained included CT facial bones which was independently interpreted by me revealing multiple facial/orbital fractures including a right posterior inferior orbital floor fracture comminuted and displaced, no evidence of entrapment, lateral posterior maxillary wall fracture, lateral posterior maxillary sinus fracture both nondisplaced and lateral orbital rim oblique fracture which is minimally displaced. Patient also has maxillary sinus hematoma and a right preseptal and present the medics soft tissue hematoma. At this time patient was informed of these findings at bedside. Case was discussed with the on-call computer system technician at [facility] Dr. Conway at 0121 recommending starting the patient on Augmentin and outpatient follow-up in 48 hours at their clinic, nasal precautions. Case was also discussed with the ENT physician Dr. Quintanilla at 0131 who agreed with ophthalmology is recommendation and will set up outpatient follow-up with the patient on Monday. Differential diagnosis considerations include orbital floor fracture, laceration, abrasion, globe rupture. Comorbidities impacting this visit include none. I have evaluated and discussed social determinants of health with the patient that could potentially impact subsequent diagnosis and treatment plans. On repeat assessment of the patient, reevaluation revealed that the patient is doing well and is in no acute distress. Patient symptoms have improved since she arrived to our emergency department. Repeat vital signs were all reviewed and noted to be stable. Differential diagnosis and treatment plan were discussed with the patient at bedside. Patient agrees with discussion and after shared medical decision making agrees with discharge. All questions were answered to the patient's satisfaction. Patient will follow up with both ENT and Ophthalmology within the next 48-72 hours. Script for Augmentin was sent to her pharmacy to take as prescribed. Patient was provided with strict return precautions and instructed to return to the emergency department if any new or worsening symptoms develop. The patient was discharged in stable condition. <Nyasia Wills MD - Last Filed: 08/03/25 02:45> Vital Signs Vital Signs: Vital Signs Temperature 98.1 F 08/02/25 21:19 Pulse Rate 63 08/02/25 21:19 Respiratory Rate 18 08/02/25 21:19 Blood Pressure 142/87 H 08/02/25 21:19 Pulse Oximetry 99 08/02/25 21:19 Oxygen Delivery Room Air 08/02/25 21:19 Temperature 98.1 F 08/02/25 21:19 Pulse Rate 63 08/02/25 21:19 Respiratory Rate 18 08/02/25 21:19 Blood Pressure 142/87 H 08/02/25 21:19 Pulse Oximetry 99 08/02/25 21:19 Oxygen Delivery Room Air 08/02/25 21:19 <Nyasia Wills MD - Last Filed: 08/03/25 02:45> Vital Signs Temperature 98.1 F 08/02/25 21:19 Pulse Rate 63 08/02/25 21:19 Respiratory Rate 18 08/02/25 21:19 Blood Pressure 142/87 H 08/02/25 21:19 Pulse Oximetry 99 08/02/25 21:19 Oxygen Delivery Room Air 08/02/25 21:19 Temperature 98.1 F 08/02/25 21:19 Pulse Rate 63 08/02/25 21:19 Respiratory Rate 18 08/02/25 21:19 Blood Pressure 142/87 H 08/02/25 21:19 Pulse Oximetry 99 08/02/25 21:19 Oxygen Delivery Room Air 08/02/25 21:19 <Aline Conde PA-C - Last Filed: 08/03/25 02:22> Discharge Plan Discharge Clinical Impression: Facial trauma, Closed fracture of right orbital floor, Fracture of right maxillary sinus <Nyasia Wills MD - Last Filed: 08/03/25 02:45> Patient Disposition: Home <Nyasia Wills MD - Last Filed: 08/03/25 02:45> Condition: Stable <Nyasia Wills MD - Last Filed: 08/03/25 02:45> Instructions: Antibiotic Form, Facial Fracture (DC) <Nyasia Wills MD - Last Filed: 08/03/25 02:45> Additional Instructions: You will need to follow-up with both Ophthalmology and ENT. He your appointment is set for MondayAugust 04 at 10:00 a.m. at [facility] is ophthalmology clinic. You will also need to call the ENT clinic at [phone] on Monday to set up an appointment for August 05. You need to take the prescribed antibiotic as instructed. Return to the emergency department if any new or worsening symptoms develop. Nasal precautions was recommended by Ophthalmology and ENT including no nose blowing, no heavy lifting or straining. <Nyasia Wills MD - Last Filed: 08/03/25 02:45> Patient Language: Swazi <Nyasia Wills MD - Last Filed: 08/03/25 02:45> Prescriptions: New amoxicillin-pot clavulanate 875-125 mg tablet 1 tablet PO Q12H 7 Days Qty: 14 0RF No Action sertraline 100 mg Tablet 100 mg PO DAILY diphenhydramine HCl [Benadryl] 25 mg Capsule 25 mg PO HS PRN (Reason: Insomnia) bupropion HCl 300 mg Tablet Extended Release 24 Hr 300 mg PO QAM <Nyasia Wills MD - Last Filed: 08/03/25 02:45> Follow-up/Referrals: Marcos,MD Randy [Primary Care Provider, Unknown] <Nyasia Wills MD - Last Filed: 08/03/25 02:45> Time of Disposition: 02:23 <Nyasia Wills MD - Last Filed: 08/03/25 02:45> 02:23 <Aline Conde PA-C - Last Filed: 08/03/25 02:22>
--- NOTE | 2025-08-03 01:20 | PC.NURSE ---
pt laceration cleaned and ice pack applied.
[2025-08-03] MEDS: ACETAMINOPHEN 500 MG TABLET 1000 MG PO (02:08)
[2025-08-03 02:56] LABS: BEDSIDEPREGUCG Negative (Negative)
== END 2025-08-03 02:45 | disposition home or self-care (01) ==
PROVIDERS: Emergency Provider Emergency Medicine; PCP Internal Medicine
DX: S02.31XA Fracture of orbital floor, right side, initial encounter for closed fracture (principal); S02.40CA Maxillary fracture, right side, initial encounter for closed fracture; S01.111A Laceration without foreign body of right eyelid and periocular area, initial encounter; W21.03XA Struck by baseball, initial encounter; Y93.82 Activity, spectator at an event
CPT/HCPCS: 12011; 70486; 81025; 99284; A9270